=== PATIENT | female | born 1960 | race Caucasian/White ===

== ENCOUNTER → 2017-05-30 | Outpatient (CLI) | payer BC ==
[~2017-05-30] MED LIST: IOPAMIDOL 370 MG/ML 200 ML INFUS..BTL INJ ONE; SODIUM CHLORIDE 0.9% 50ML 50 ML ONE
--- NOTE | 2017-05-30 15:48 | Diagnostic Imaging Report ---
PROCEDURE: CT scan of the chest WITH intravenous contrast, using PE protocol. TECHNIQUE: The chest was scanned utilizing a multidetector helical scanner from the lung apex through the level of the adrenal glands after the IV administration of 58 cc of Isovue 370, with special concentration in the pulmonary arteries. Coronal and sagittal multiplanar reformations were obtained. COMPARISON: None. INDICATIONS: CHEST PAIN, SHORTNESS OF BREATH FINDINGS: Lines/tubes: None. Lungs and Airways: No filling defects in the main, right or left pulmonary arteries to the segmental levels to suggest pulmonary embolism. No pulmonary nodules, masses, or consolidation. Linear opacity in the posterior right upper lobe against the major fissure (series 3, image 42 and coronal image 66), likely represents focal scarring. Airways are clear, without endobronchial lesions. Pleura: The pleural spaces are clear. Heart and mediastinum: 2.3 x 1.7 x 1.8 cm partially peripherally calcified nodule in the left thyroid lobe (series 2 image 12). Heart size is normal. No pericardial effusion. Extensive atherosclerotic calcification of the coronary arteries, particularly the LAD. Lymph nodes: No mediastina, hilar, or axillary adenopathy. Abdomen: Limited contrast-enhanced views of the upper abdomen show no abnormality within the visualized liver, spleen, pancreas. Right adrenal gland is unremarkable. 0.9 cm fat-containing lesion in the left adrenal gland, consistent with a myelolipoma (series 2, image 104). Bones: No aggressive lytic lesion. Soft tissues are grossly unremarkable. IMPRESSION: 1. no CT evidence of pulmonary embolism. 2. Focal scarring in the right upper lobe against the major fissure. Otherwise, the lungs are grossly clear. 3. 2.3 cm peripherally calcified thyroid nodule. Dedicated thyroid ultrasound would be helpful for further evaluation. 4. 0.9 cm left adrenal myelolipoma. Raymond Lind M.D. Dictated by: Raymond Lind M.D. on 05/30/2017 at 15:57 Electronically approved by: Raymond Lind M.D. on 05/30/2017 at 15:57
== END ==
LOC: CT 12:44
PROVIDERS: ATTEND Internal Medicine Interventional Cardiology
DX: R06.02 Shortness of breath (principal); R00.0 Tachycardia, unspecified
CPT/HCPCS: 71260; Q9967

== ENCOUNTER → 2018-09-30 | Day surgery (SDC) | payer BC ==
[2018-09-24 11:30] LABS: BASOPHILS # (AUTO) 0.1 (0.0-0.1); BASOPHILS % 0.7 % (0.0-1.0); EOSINOPHILS # (AUTO) 0.6 (0.0-0.4); EOSINOPHILS % 7.4 % (0.0-6.0); HEMOGLOBIN 11.5 g/dL (12.0-16.0); LYMPHOCYTES # (AUTO) 2.1 (1.0-3.2); LYMPHOCYTES % 27.4 % (18.0-39.1); MEAN CORPUSCULAR HGB CONC 31.1 g/dL (31-35); MEAN CORPUSCULAR VOLUME 83.7 fL (81-99); MONOCYTES # (AUTO) 0.5 (0.2-0.8); MONOCYTES % 6.7 % (4.4-11.3); NEUTROPHILS # (AUTO) 4.3 (2.1-6.9); NEUTROPHILS % 57.5 % (38.7-80.0); PLATELET COUNT 201 x10e3/uL (140-360); RED BLOOD COUNT 4.42 x10e6/uL (3.6-5.1); RED CELL DISTRIBUTION WIDTH 12.5 % (11.7-14.4)
[2018-09-24 11:53] LABS: ALBUMIN 3.7 g/dL (3.5-5.0); ALBUMIN/GLOBULIN RATIO 1.1 (0.8-2.0); ANION GAP 14.1 mmol/L (8-16); CALCIUM 9.8 mg/dL (8.4-10.2); CREATININE, SERUM 1.05 mg/dL (0.57-1.11); POTASSIUM 4.1 mmol/L (3.5-5.1)
[2018-09-30] VITALS (16 sets, daily range): BP systolic 125–150; BP diastolic 53–104
[~2018-09-30] VITALS: Ht 165.1 cm; Wt 88.5 kg
[~2018-09-30] MED LIST changes: +ASPIR 8181 MG PO; +ASPIRIN 325 MG TAB ONE; +CORLANOR PO; +CRESTOR10 MG PO; +EFFIENT10 MG PO; +EPTIFIBATIDE 10 ML ONE; +FENTANYL CITRATE/PF 100MCG/2 ML INJ ONE; +FERROUS SULFAT325 MG PO; +HEPARIN SOD/SOD CHLORIDE 2,000 ML ONE; +HYDROCODONE/APAP 5MG-325MG TAB ONE; +LEVOTHYROXINE112 MCG PO; +LIDOCAINE HCL 2% LOCAL 20 ML VIAL ONE; +METFORMIN HCL500 MG PO; +MIDAZOLAM HCL 2 MG/2 ML VIAL ONE; +NAPROXEN250 MG PO; +NOVOLOG MI100 UNIT/1 SC; +SERTRALINE HCL100 MG PO; +SODIUM CHLORIDE 0.9% 1000ML 1,000 ML ONE; -SODIUM CHLORIDE 0.9% 50ML 50 ML ONE; +TICAGRELOR 90 MG TABLET ONE; +VERAPAMIL HCL 2.5 MG/ML 2 ML VIAL ONE
--- OUTSIDE RECORDS SUMMARY | 2018-09-30 10:11 | XMS REPORT | Clinical Summary ---
Author Author [facility] Organization [place] [facility] Address Unknown Phone Unavailable Care Team Providers Care Nuclear Design Engineer Name Role Phone Valeriy Tatum MD PCP Allergies No Known Allergies Medications End Date Status Medication Sig Dispensed Refills Start Date Active aspirin (ECOTRIN) 81 MG 0 enteric coated tablet 9 Active ferrous sulfate 325 (65 Take 1 tablet 6 FE) MG tablet by mouth 9 daily. Active CORLANOR 5 mg tablet Take 5 mg by 1 tablet mouth 2 (two) 9 times a day with meals. Active levothyroxine (SYNTHROID, 0 LEVOXYL) 100 mcg tablet 9 Active metFORMIN (GLUCOPHAGE) 0 1,000 mg tablet 9 09/18/2018 gabapentin (NEURONTIN) Take 1 90 capsule 0 300 mg capsule capsule (300 9 mg total) by mouth 3 (three) times a day for 30 days. Active Problems No known active problems Encounters Care Team Description Date Type Specialty Artur Farrar MD HNP (herniated nucleus pulposus), lumbar (Primary Dx); Lumbar radiculopathy 09/18/2018 Office Visit Neurosurgery Angela Lew RN 09/03/2018 Telephone Radiology Artur Farrar MD HNP (herniated nucleus pulposus), lumbar; Lumbar radiculopathy; Bilateral leg pain 09/02/2018 Hospital Radiology Encounter Peg Sorensen RN 09/01/2018 Telephone Radiology Artur Farrar MD 08/19/2018 Hospital Radiology Encounter Artur Farrar MD Onyegbula Sallu, Ogechi Joyce, NP HNP (herniated nucleus pulposus), lumbar (Primary Dx); Lumbar radiculopathy; Bilateral leg pain; Bowel dysfunction 08/19/2018 Office Visit Neurosurgery after 09/29/2017 Family History Medical History Relation Name Comments Cancer Father Lung failure Mother Relation Name Status Comments Father Mother Social History Date Tobacco Use Types Packs/Day Years Used Never Smoker Smokeless Tobacco: Never Used Alcohol Use Drinks/Week oz/Week Comments Yes Alcohol Habits Answer Date Recorded How often do you have a drink containing alcohol? 2-4 times a month 08/19/2018 How many drinks containing alcohol do you have on Not asked a typical day when you are drinking? How often do you have six or more drinks on one Not asked occasion? Sex Assigned at Date Recorded Not on file Industry Job Start Date Occupation Not on file Not on file Not on file Travel End Travel History Travel Start No recent travel history available. Last Filed Vital Signs Time Taken Vital Sign Reading 09/18/2018 9:49 AM CDT Blood Pressure 123/67 09/18/2018 9:49 AM CDT Pulse 93 09/02/2018 12:09 PM CDT Temperature 36.1 C (97 F) 09/02/2018 12:09 PM CDT Respiratory Rate 17 09/02/2018 1:00 PM CDT Oxygen Saturation 97% - Inhaled Oxygen - Concentration 09/02/2018 10:34 AM CDT Weight 88.5 kg (195 lb) 09/02/2018 10:34 AM CDT Height 165.1 cm (5' 5") 09/02/2018 10:34 AM CDT Body Mass Index 32.45 Plan of Treatment Health Maintenance Due Date Last Done Comments BREAST CANCER SCREENING 2008 COLONOSCOPY SCREENING 2008 SHINGLES VACCINES (#1) 2008 INFLUENZA VACCINE 11/19/2018 Procedures Comments Procedure Name Priority Date/Time Associated Diagnosis IR EPIDURAL INJECTION Routine 09/02/2018 HNP (herniated nucleus LUMBAR 12:00 PM CDT pulposus), lumbar Lumbar radiculopathy Bilateral leg pain MRI SPINE EXTERNAL STUDY Routine 08/14/2018 5:31 PM CDT after 09/29/2017 Results * IR Epidural Injection Lumbar (09/02/2018 12:00 PM CDT) Specimen Narrative Performed At EXAMINATION:IR EPIDURAL INJECTION LUMBAR [facility] CLINICAL HISTORY:M51.26 Other intervertebral disc displacementlumbar region, M54.16 Radiculopathylumbar region, HNP lumbar causing lumbar spinal stenosis COMPARISON:MRI lumbar spine dated August 14, 2018 FINDINGS: Review the patient's outside hospital MRI shows multifactorial significant canal lateral recess stenosis at L4-5. The patient has symptoms related to this stenosis with occasional bilateral lower extremity weakness and radiculopathies from the stenosis. A L4-L5 KIRSTEN was ordered and performed. After informed consent, and timeout was performed, the patient's lower back was prepped and draped in the usual sterile fashion. 1% lidocaine was used for local anesthesia. Under direct fluoroscopic guidance with imaging in both the AP and lateral planes, access to the posterior epidural space was made using a 20-gauge Touhy needle. Loss of resistance technique was used to identify the epidural space. This was further confirmed with injection of a small amount of contrast outlining the epidural space at L4-L5. No intervascular enhancement or contrast extravasation was noted. No intrathecal contrast extravasation was noted. The patient did not have any symptoms of discomfort with contrast injection. This was followed by injection of steroids mixed with Marcaine for epidural steroid injection. A total of 9 mg of Celestone mixed with 1 cc is 0.75%Marcaine was injected. There are no complications. Total fluoroscopy time was 0.1 minutes.Total radiation dose is 101.3 mGy=Ka,r IMPRESSION: Successful fluoroscopic guided lumbar epidural steroid injection at L4-5 as detailed above. There was complete pain relief 30 minutes post injection. Efficacy of the steroids will be determined over the next few weeks. Due to the severe stenosis at L4-5, the patient was counseled on the importance of diet, exercise and weight loss. If the steroids do not work, the patient was counseled on the need for possible future decompressive surgery. [id number] Procedure Note Hm Interface, Radiology Results Incoming - 09/02/2018 6:27 PM CDT EXAMINATION: IR EPIDURAL INJECTION LUMBAR CLINICAL HISTORY: M51.26 Other intervertebral disc displacement lumbar region, M54.16 Radiculopathy lumbar region, HNP lumbar causing lumbar spinal stenosis COMPARISON: MRI lumbar spine dated August 14, 2018 FINDINGS: Review the patient's outside hospital MRI shows multifactorial significant canal lateral recess stenosis at L4-5. The patient has symptoms related to this stenosis with occasional bilateral lower extremity weakness and radiculopathies from the stenosis. A L4-L5 KIRSTEN was ordered and performed. After informed consent, and timeout was performed, the patient's lower back was prepped and draped in the usual sterile fashion. 1% lidocaine was used for local anesthesia. Under direct fluoroscopic guidance with imaging in both the AP and lateral planes, access to the posterior epidural space was made using a 20-gauge Touhy needle. Loss of resistance technique was used to identify the epidural space. This was further confirmed with injection of a small amount of contrast outlining the epidural space at L4-L5. No intervascular enhancement or contrast extravasation was noted. No intrathecal contrast extravasation was noted. The patient did not have any symptoms of discomfort with contrast injection. This was followed by injection of steroids mixed with Marcaine for epidural steroid injection. A total of 9 mg of Celestone mixed with 1 cc is 0.75% Marcaine was injected. There are no complications. Total fluoroscopy time was 0.1 minutes. Total radiation dose is 101.3 mGy =Ka,r IMPRESSION: Successful fluoroscopic guided lumbar epidural steroid injection at L4-5 as detailed above. There was complete pain relief 30 minutes post injection. Efficacy of the steroids will be determined over the next few weeks. Due to the severe stenosis at L4-5, the patient was counseled on the importance of diet, exercise and weight loss. If the steroids do not work, the patient was counseled on the need for possible future decompressive surgery. [id number] Performing Organization Address [facility] Phone Number [employer] [address] [place] [address] * MRI Spine External Study (08/14/2018 5:31 PM CDT) Specimen Narrative Performed At This exam was not acquired at a [facility] facility and has not been RAD[facility]ANNER interpreted by a [facility] Provider.The exam was imported into our imaging system for comparisons purposes. Performing Organization Address City/State/Zipcode Phone Number [employer] [address] [place] [address] after 09/29/2017 Insurance Type Payer Benefit Subscriber ID Effective Phone Address Plan / Dates Group PPO BCBS DIEUDONNEEM xxxxxxxxxxxxxxx [id number] BLUE CROSS resent Advance Directives Patient has advance care planning documents on file. For more information, toni e contact: Paras Archer [address] [place] [address]
--- OUTSIDE RECORDS SUMMARY | 2018-09-30 10:11 | XMS REPORT ---
[facility] Address Unknown Phone Unavailable Care Team Providers Care Plate Worker Helper Name Role Phone MADY MART Unavailable Unavailable Problems This patient has no known problems. Allergies, Adverse Reactions, Alerts This patient has no known allergies or adverse reactions. Medications This patient has no known medications. Results Test Description Test Time Test Comments Text Results Atomic Results Result Comments CT CHEST W [place] [address] Patient Name: VIDA JAVIER MR #: [id number] : 1960 Age/Sex: 56/F Req #: [id number] Adm Physician: Ordered by: MADY MART MD Report #: [id number] Location: CT Room/Bed: Procedure: [id number] CT/CT CHEST W Exam Date: Exam Time: REPORT STATUS: Signed PROCEDURE: CT scan of the chest WITH intravenous contrast, using PE protocol. TECHNIQUE: The chest was scanned utilizing a multidetector helical scanner from the lung apex through the level of the adrenal glands after the IV administration of 58 cc of Isovue 370, with special concentration in the pulmonary arteries. Coronal and sagittal multiplanar reformations were obtained. COMPARISON: None. INDICATIONS: CHEST PAIN, SHORTNESS OF BREATH FINDINGS: Lines/tubes: None. Lungs and Airways: No filling defects in the main, right or left pulmonary arteries to the segmental levels to suggest pulmonary embolism. No pulmonary nodules, masses, or consolidation. Linear opacity in the posterior right upper lobe against the major fissure (series 3, image 42 and coronal image 66), likely represents focal scarring. Airways are clear, without endobronchial lesions. Pleura: The pleural spaces are clear. Heart and mediastinum: 2.3 x 1.7 x 1.8 cm partially peripherally calcified nodule in t he left thyroid lobe (series 2 image 12). Heart size is normal. No pericardial effusion. Extensive atherosclerotic calcification of the coronary arteries, particularly the LAD. Lymph nodes: No mediastina, hilar, or axillary adenopathy. Abdomen: Limited contrast-enhanced views of the upper abdomen show no abnormality within the visualized liver, spleen, pancreas. Right adrenal gland is unremarkable. 0.9 cm fat-containing lesion in the left adrenal gland, consistent with a myelolipoma (series 2, image 104). Bones: No aggressive lytic lesion. Soft tissues are grossly unremarkable. IMPRESSION: 1. no CT evidence of pulmonary embolism. 2. Focal scarring in the right upper lobe against the major fissure. Otherwise, the lungs are grossly clear. 3. 2.3 cm peripherally calcified thyroid nodule. Dedicated thyroid ultrasound would be helpful for further evaluation. 4. 0.9 cm left adrenal myelolipoma. Desean Yusuf M.D. Dictated by: Desean Yusuf M.D. on 05/30/2017 at 15:57 Electronically approved by: Desean Yusuf M.D. on 05/30/2017 at 15:57 Dictated By: DESEAN YUSUF MD 2017 Transcribed By: PRASANNA on 05/30/17 [id number] COPY TO: MADY MART MD GUIDE FNA BIOPSY NECK/THYROID/HEAD CLINICAL INDICATION: E 04.1MODALITY: [email or web address] PreirusTECHNIQUE: Informed consent is obtained. Benefits, risks and alternatives are discussed in detail with the patient. The neck is prepped and draped in routine fashion. 1% buffered lidocaine is used for local analgesia. Using ultrasound guidance, multiple passes are made into the suspicious area utilizing a 25 gauge needle. Slides are prepared and submitted for cytological analysis.Estimated blood loss: 0 ml. FINDINGS:Needle is depicted within the suspected lesion.IMPRESSION:1. Ultrasound - guided biopsy 2.6 x 2.3 cm left thyroid nodule. 2. Pathologic diagnosis: Negative for malignancy; histologic prediction is adenomatous nodule.This represents a concordant result.
--- NOTE | 2018-09-30 14:00 | NUR ---
Report received from Rocco Tabor RN, review of procedural findings and medications given. Patient sitting up on stretcher w/ family at bedside. maintains airway and room air saturations of 98-99%. No gross issues of pressure, pain, pallor or dysrhythmia. IV site patent with NS 0.9% at KVO to left hand. patient hemodynamically stable with hemostasis right radial TR band w/ 11ml air with +neurovascular function. CDI w/o s/s of bleeding. patient on bedside monitor, bed low and locked, siderails up x2. no gross distress. faint discoloration proximal to TR band. continuing to observe[place] [facility] [place] Circumflex PCI x2 right radial approach Sheath puller: lizeth RTr TR band 11ml Meds Given Intra-Procedure Sedatives Versed - 4 mg Fentanyl - 100 mcg Anticoagulants Heparin - 9000 Units Integrilin - 7.9ml bolus x1 Fluids Input - 400ml Output - dtv Contrast Isovue 370 - 120ml Other Meds Brilinta 180mg PO Aspirin 325mg PO
--- NOTE | 2018-09-30 14:30 | NUR ---
Pt remains alert and oriented, VS wnl. Pt w/ c/o of mild headache 05/31. Sustenance provided. Observed enlarged discoloration proximal to TR band with slight "bulging". Immediate moderate pressure applied and Jarred to room to ensure position unchanged. 2ML additional to TR band, and moderate pressure for 5 minutes applied. Further observation pt w/ c/o of ache to right upper arm. No gross deformities, swelling, or discoloration, right elbow joint unimpeded. Reinforced complete rest of right arm. monitoring ongoing - cgf
--- NOTE | 2018-09-30 14:55 | NUR ---
gross swelling proximal to TR band approximately 1.5 cm. Immediate pressure applied and technologists called to reevaluate position. Decided to add 2nd TR band adjunct to 10 minutes of direct pressure. VS wnl, maintains + neurovascular function.-cgf
--- NOTE | 2018-09-30 15:10 | NUR ---
bedside report provided to Amara Perdomo RN. Alert oriented and appropriate, PERRLA, respirations even and unlabored to room air. Pulses x4 extremities equal and strong. Tr band proximal w/ 10ml/hr, distal TR band 13ml/hr. Cap fill brisk < 3 sec. Skin warm and dry integrity appears intact. IV presents healthy w/o s/s of infiltration or complaint. Family not present. Pt verbalizes understanding of POC. above prior events reviewed. Headache beginning to intensify 09/28. next RN following up -cgf
--- NOTE | 2018-09-30 15:15 | NUR ---
1515 Received pt in Rm #[id number] Identiferx2 Report form Omar CLEMONS. [facility] Rt Tr band approach TR band x [address] due to hematoma. Pt back to baseline orientation Co Lopez temporal 09/[address] Laguna for Lopez orders. Pt has Stent to Circumflex 2 Monitor NSR.Denies c/o Cp or SOB NO gross issues pain, pallor, pressure or dysrhythmia. Md called back Narco 325mg/5mg po x1 for pain of 09/28.Bilateral ppx4 PT/Dp. Left iv site w/o a 75cc/hr no s/s infiltration. Family at bedside discussed POC aware of importance f/o 2wks.Copies dc papers with family. 1630pm 2cc to initial TR band no oozing noted Intact neuro vascular function noted. ds/rn
--- NOTE | 2018-09-30 18:00 | NUR ---
1800p TR band removal completed with TR band x2 removed w/o incident. Neuro vascular function intact. No gross issues pain pallor pressure or dysrhythmia. Instructed daughter on home care, Has copies of POC and back to work release. Iv removed and site w/o s/s infiltration back to baseline orientation. Rt tr band site with Coban dressing and wrist splint. NO s/s hematoma does have slight blueness to wrist area. Denies c/o CP,SOB or tenderness to wrist. Knows importance of f/o care 2wks. To car per w/c daughter is lifter driver. With Rn escort. ds/rn
--- NOTE | 2018-09-30 20:37 | Operative Report ---
DATE OF PROCEDURE: 09/30/2018 SURGEON: Barrie Laguna MD INDICATIONS: Coronary artery disease, abnormal stress test. PROCEDURES PERFORMED: 1. Left heart catheterization, selective coronary angiography, left ventriculography. 2. Percutaneous transluminal coronary angioplasty and stent placement to the mid and proximal circumflex artery. 3. Deployment of right wrist TR band. COMPLICATIONS: None. RECOMMENDATIONS: Medical therapy. DESCRIPTION OF PROCEDURE: Access obtained in the right radial artery using ultrasound guidance. A 5-Botswanan sheath was placed. Diagnostic coronary angiogram revealed 50% distal left main stenosis, heavily calcified left anterior descending artery 50% stenosis, circumflex 80% and 90% stenosis proximal and midportion, circumflex stent widely patent prior to the stent, 50% stenosis. LV ejection fraction 70%. LV end-diastolic pressure of 10. No gradient across aortic valve on pullback. A decision was made to intervene on the circumflex artery. The patient received heparin and Integrilin as well as oral Brilinta and aspirin for anticoagulation. The left main was cannulated using the ERAD 5-Botswanan guiding catheter. A short wire was advanced across the lesion for support. Predilatation with a 2-0 balloon, following which 2 overlapping 2.25 x 30 mm Arnaud and 2.75 x 12 mm Arnaud stents were deployed at 14 atmospheres. Excellent end result less than 10% residual stenosis, CHERY-3 flow. No complications. Wire Guide sheath was removed. TR band applied. The patient discharged home same day. Barrie Laguna MD [facility] /[id number]
== END | disposition home or self-care (01) ==
LOC: CATH LAB 10:09
PROVIDERS: ATTEND Internal Medicine Interventional Cardiology
DX: I25.118 Atherosclerotic heart disease of native coronary artery with other forms of angina pectoris (principal); I25.2 Old myocardial infarction; I50.22 Chronic systolic (congestive) heart failure; E78.00 Pure hypercholesterolemia, unspecified; G47.33 Obstructive sleep apnea (adult) (pediatric); E11.9 Type 2 diabetes mellitus without complications; Z01.812 Encounter for preprocedural laboratory examination; Z79.82 Long term (current) use of aspirin; Z79.4 Long term (current) use of insulin; Z68.36 Body mass index [BMI] 36.0-36.9, adult
CPT/HCPCS: 36415; 80053; 85025; 92928; 93458; C1725; C1769; C1874 ×2; C1887; J1327; J2001; J2250; J7030; Q9967

== ENCOUNTER → 2018-10-15 | Outpatient (CLI) | payer BC ==
[~2018-10-15] MED LIST changes: -ASPIRIN 325 MG TAB ONE; -EPTIFIBATIDE 10 ML ONE; -FENTANYL CITRATE/PF 100MCG/2 ML INJ ONE; -HEPARIN SOD/SOD CHLORIDE 2,000 ML ONE; -HYDROCODONE/APAP 5MG-325MG TAB ONE; -IOPAMIDOL 370 MG/ML 200 ML INFUS..BTL INJ ONE; -LIDOCAINE HCL 2% LOCAL 20 ML VIAL ONE; -MIDAZOLAM HCL 2 MG/2 ML VIAL ONE; -SODIUM CHLORIDE 0.9% 1000ML 1,000 ML ONE; -TICAGRELOR 90 MG TABLET ONE; -VERAPAMIL HCL 2.5 MG/ML 2 ML VIAL ONE
--- NOTE | 2018-10-15 12:41 | Diagnostic Imaging Report ---
History: TIA Comparison studies: None Technique: Sagittal T2; axial DWI, FLAIR, MPGR, T1, Coronal FLAIR. Intravenous contrast: None Findings: Scalp: Normal in signal . No masses . Bone marrow: Normal in signal intensity. Extra-axial: No masses, no fluid collections. Brain sulci: Appropriate for age. Ventricles: Normal in size . No hydrocephalus . Parenchyma: No abnormal signal intensities. No masses, hemorrhage, acute or chronic vascular insults. Suprasellar region: No abnormalities. Craniocervical junction: No abnormalities. Patent foramen magnum. No Chiari one malformation. Vessels: Normal flow-voids in the arteries and sinuses. IMPRESSION: 1. No abnormalities Signed by: DR Pako Villeda M.D. on 10/15/2018 12:38 PM
== END ==
LOC: MRI 09:21
PROVIDERS: ATTEND Internal Medicine Interventional Cardiology
DX: G45.9 Transient cerebral ischemic attack, unspecified (principal)
CPT/HCPCS: 70551

== ENCOUNTER 2019-08-02 16:44 | Emergency (ER) | payer BC ==
[~2019-08-02] VITALS: Ht 165.1 cm; Wt 88.5 kg
[2019-08-02] MEDS ORDERED: SODIUM CHLORIDE 0.9% 1000ML 1,000 ML IV STA (17:53)
[2019-08-02] MEDS ORDERED: DICYCLOMINE HCL 20 MG/2 ML VIAL IM ONE ×3 (18:00→18:34)
[2019-08-02] MEDS ORDERED: SODIUM CHLORIDE FLUSH 10 ML SYR INJ PRN (18:00)
[2019-08-02] MEDS ORDERED: SODIUM CHLORIDE 0.9% 1000ML 1,000 ML ONE (18:21)
[2019-08-02] MEDS ORDERED: SODIUM CHLORIDE 0.9% 50ML 50 ML ONE (18:30)
[2019-08-02] MEDS ORDERED: IOPAMIDOL 370 MG/ML 200 ML INFUS..BTL INJ ONE (18:30)
--- NOTE | 2019-08-02 18:45 | NUR ---
report given to JOSE MARTIN CLEMONS
--- NOTE | 2019-08-02 19:01 | Diagnostic Imaging Report ---
EXAM: CT Abdomen and Pelvis WITH contrast INDICATION: Abdominal pain. Constipation. COMPARISON: None. TECHNIQUE: Abdomen and pelvis were scanned utilizing a multidetector helical scanner from the lung base to the pubic symphysis after administration of IV contrast. Coronal and sagittal reformations were obtained. Routine protocol was performed. Scan was performed when during portal venous phase. IV CONTRAST: 100 mL of Isovue 300 ORAL CONTRAST: None COMPLICATIONS: None RADIATION DOSE: Total DLP: ... mGy*cm Estimated effective dose: (DLP x 0.015 x size factor) mSv CTDIvol has been reviewed. It is below the limits set by the Radiation Protocol Committee (RPC). Dose modulation, iterative reconstruction, and/or weight based adjustment of the mA/kV was utilized to reduce the radiation dose to as low as reasonably achievable. FINDINGS: LINES and TUBES: None. LOWER THORAX: Unremarkable HEPATOBILIARY: No focal hepatic lesions. No biliary ductal dilation. GALLBLADDER: No radio-opaque stones or sludge. No wall thickening. SPLEEN: No splenomegaly. PANCREAS: No focal masses or ductal dilatation. ADRENALS: No adrenal nodules KIDNEYS/URETERS: Kidneys enhance symmetrically. No hydronephrosis. No cystic or solid mass lesions. No stones. GI TRACT: No abnormal distention, wall thickening, or evidence of bowel obstruction. Small fat and bowel-containing periumbilical hernia. No bowel obstruction or strangulation. Moderate amount of retained feces in the colon could be due to constipation. PELVIC ORGANS/BLADDER: Unremarkable. LYMPH NODES: No lymphadenopathy. VESSELS: Unremarkable. PERITONEUM / RETROPERITONEUM: No free air or fluid. BONES: Unremarkable. SOFT TISSUES: Postsurgical change along the anterior right mid/lower abdominal wall. IMPRESSION: 1. Small fat and bowel-containing periumbilical hernia. No bowel obstruction or strangulation. Moderate amount of retained feces in the colon could be due to constipation. Signed by: Dr. Harlan Schmidt M.D. on 08/02/2019 6:58 PM
[2019-08-02 19:53] VITALS: BP 114/63
[2019-08-02] MEDS ORDERED: ONDANSETRON ODT8 MG PO (20:02)
[2019-08-02] MEDS ORDERED: LEVSIN-SL0.125 MG PO (20:02)
[2019-08-02] MEDS ORDERED: BACTRIM DS TAB1 EACH PO (20:05)
[2019-08-05] MEDS ORDERED: METOPROLOL SUCC25 MG PEG (12:34)
[2019-08-05] MEDS ORDERED: NOVOLOG100 UNITS1 SQ ×2 (12:34)
[2019-08-05] MEDS ORDERED: OZEMPIC0.25 MG/0. INJ (12:34)
[2019-08-05] MEDS ORDERED: GLIMEPIRIDE2 MG PO (12:34)
[2019-08-05] MEDS ORDERED: GABAPENTIN100 MG PO (12:34)
== END 2019-08-02 20:20 | disposition home or self-care (01) ==
LOC: FSED 16:44
DX: K59.00 Constipation, unspecified (principal); N39.0 Urinary tract infection, site not specified
CPT/HCPCS: 74177; 80053; 80076; 81003; 85025; 85610; 96374; 99284; J0500; J7030; Q9967

== ENCOUNTER → 2019-08-06 | Day surgery (SDC) | payer BC ==
[~2019-08-06] MED LIST changes: +BACTRIM DS TAB1 EACH PO; +FENTANYL CITRATE/PF 100MCG/2 ML INJ ONE; +GABAPENTIN100 MG PO; +GLIMEPIRIDE2 MG PO; +GLUCAGON FOR INJ 1 MG VIAL ONE; +HYOSCYAMINE 0.125 MG TAB ONE; +INSULIN REGULAR, HUMAN 100 UNIT/1 ML 3ML VIAL ONE; +LEVSIN-SL0.125 MG PO; +LIDOCAINE HCL 2% LOCAL INJ 5 ML SDV VIAL INJ ONE; +METOPROLOL SUCC25 MG PEG; +MIDAZOLAM HCL 2 MG/2 ML VIAL ONE; +NOVOLOG100 UNITS1 SQ; +ONDANSETRON ODT8 MG PO; +OZEMPIC0.25 MG/0. INJ; +PROPOFOL IV EMULSION 10 MG/ML 50 ML VIAL ONE
[2019-08-06 07:15] LABS: BASOPHILS # (AUTO) 0.1 (0.0-0.1); BASOPHILS % 0.5 % (0.0-1.0); EOSINOPHILS # (AUTO) 0.5 (0.0-0.4); EOSINOPHILS % 4.5 % (0.0-6.0); HEMATOCRIT 41.3 % (34.2-44.1); HEMOGLOBIN 13.2 g/dL (12.0-16.0); LYMPHOCYTES # (AUTO) 2.7 (1.0-3.2); MEAN CORPUSCULAR HEMOGLOBIN 26.2 pg (28-32); MEAN CORPUSCULAR VOLUME 82.1 fL (81-99); MONOCYTES # (AUTO) 0.7 (0.2-0.8); MONOCYTES % 6.5 % (4.4-11.3); NEUTROPHILS # (AUTO) 6.4 (2.1-6.9); NEUTROPHILS % 62.2 % (38.7-80.0); PLATELET COUNT 227 x10e3/uL (140-360); RED BLOOD COUNT 5.03 x10e6/uL (3.6-5.1); RED CELL DISTRIBUTION WIDTH 13.2 % (11.7-14.4)
[2019-08-06 09:30] VITALS: BP 133/64
--- NOTE | 2019-08-06 10:56 | Operative Report ---
DATE OF PROCEDURE: 08/06/2019 SURGEON: Adam Jean Baptiste MD PROCEDURE: EGD with biopsies and colonoscopy with polypectomy. INDICATIONS FOR EGD: Acid reflux, history of melena. INDICATIONS FOR COLONOSCOPY: History of bright red blood per rectum, lower abdominal pain, change in bowel habits. MEDICATIONS: The patient was done under MAC, please see anesthesiologist's note. PROCEDURE IN DETAIL: With the patient in left lateral decubitus position, flexible fiberoptic Olympus gastroscope was introduced into the esophagus under direct visualization without any difficulty. There was some patchy erythema noted in distal esophagus. Minute nodule was noted at the GE junction that was biopsied. The scope was then advanced with ease into the stomach. Mucosa overlying the antrum and the body revealed some patchy erythema and low-grade to moderate edema, and biopsies were obtained, sent to stain for H pylori. The pylorus was of normal contour and shape. It was intubated with ease and the scope was advanced all the way to the second portion of the duodenum. Biopsies were obtained from the proximal second portion and the duodenal bulb to rule out sprue. The scope was then withdrawn back into the stomach and retroflexed. Mucosa overlying the fundus and cardia appeared to be within normal limits. The scope was then straightened out, it was subsequently withdrawn. The patient tolerated the procedure well. IMPRESSION: 1. Distal esophagitis, mild. 2. Minute nodule, GE junction, biopsied. 3. Gastritis, biopsied, biopsies sent to stain for Helicobacter pylori. 4. Rule out sprue. PLAN: Follow up histology. Initiate Protonix 40 mg one p.o. q.a.m. a.c. PROCEDURE IN DETAIL: The patient was then turned around after adequate lubrication of the anal canal, a flexible fiberoptic Olympus colonoscope was inserted into the rectum with ease and advanced all the way to the cecum. Mucosa overlying the cecum appeared to be within normal limits. Approximately 8 mm polyp was removed per snare electrocautery from the distal ascending colon. Two polyps were removed per snare electrocautery from the distal transverse colon and one polyp also was removed per hot snare polypectomy from the descending colon. The sigmoid and the rectum appeared to be within normal limits. The scope was then retroflexed into the distal rectum. Small internal hemorrhoids were noted, none of which was actively bleeding. The scope was then straightened out, it was subsequently withdrawn. The patient tolerated the procedure well. IMPRESSION: 1. Ascending colon polyp, snared. 2. Transverse colon polyps x2, removed per snare electrocautery. 3. Descending colon polyp removed per snare electrocautery. 4. Internal hemorrhoids, none actively bleeding. PLAN: Follow up histology. Initiate high-fiber, low-fat diet. Initiate VSL#3 one p.o. daily. The patient might benefit from a followup colonoscopy in 3 years. Adam Jean Baptiste MD [facility] [place] /[id number] cc: Valeriy Laguna MD
== END | disposition home or self-care (01) ==
LOC: OR 06:03
PROVIDERS: ATTEND Internal Medicine Gastroenterology
DX: K62.5 Hemorrhage of anus and rectum (principal); D12.3 Benign neoplasm of transverse colon; D12.4 Benign neoplasm of descending colon; K29.50 Unspecified chronic gastritis without bleeding; K20.9 Esophagitis, unspecified; K59.09 Other constipation; K22.8 Other specified diseases of esophagus; K64.8 Other hemorrhoids; E11.9 Type 2 diabetes mellitus without complications; E03.9 Hypothyroidism, unspecified; J45.909 Unspecified asthma, uncomplicated; I25.2 Old myocardial infarction; I10 Essential (primary) hypertension; Z79.4 Long term (current) use of insulin; Z79.84 Long term (current) use of oral hypoglycemic drugs
CPT/HCPCS: 36415; 43239; 45385; 82948; 85025; 93005; J2250; J3010; 45378; J1610; J1817; J2001

== ENCOUNTER → 2021-08-08 | Day surgery (SDC) | payer BC ==
[2021-08-06 12:24] LABS: BASOPHILS % 0.5 % (0.0-1.0); EOSINOPHILS # (AUTO) 0.2 (0.0-0.4); EOSINOPHILS % 3.2 % (0.0-6.0); HEMATOCRIT 36.6 % (34.2-44.1); HEMOGLOBIN 10.7 g/dL (12.0-16.0); LYMPHOCYTES # (AUTO) 1.5 (1.0-3.2); MEAN CORPUSCULAR HGB CONC 29.2 g/dL (31-35); MEAN CORPUSCULAR VOLUME 78.5 fL (81-99); MONOCYTES # (AUTO) 0.4 (0.2-0.8); NEUTROPHILS # (AUTO) 4.5 (2.1-6.9); NEUTROPHILS % 68.1 % (38.7-80.0); PLATELET COUNT 235 x10e3/uL (140-360); RED BLOOD COUNT 4.66 x10e6/uL (3.6-5.1)
[~2021-08-08] MED LIST changes: +CORLANOR5 MG; +EPHEDRINE SULFATE INJ 50 MG/ML VIAL ONE; +FOLIC ACID0.4 MG PO; -GLUCAGON FOR INJ 1 MG VIAL ONE; -HYOSCYAMINE 0.125 MG TAB ONE; -INSULIN REGULAR, HUMAN 100 UNIT/1 ML 3ML VIAL ONE; +JARDIANCE25 MG; +NOVALIN; +OZEMPIC0.25 MG/0. SC; +PIOGLITAZONE HC45 MG PO; +PROPOFOL IV EMULSION 10 MG/ML 20 ML VIAL ONE; -PROPOFOL IV EMULSION 10 MG/ML 50 ML VIAL ONE; +VITAMIN D250 MCG
[2021-08-08 13:15] VITALS: BP 135/63
== END | disposition home or self-care (01) ==
LOC: OR 08:04
PROVIDERS: ATTEND Internal Medicine Gastroenterology
DX: D64.89 Other specified anemias (principal); D12.0 Benign neoplasm of cecum; D12.3 Benign neoplasm of transverse colon; Q27.39 Arteriovenous malformation, other site; K29.50 Unspecified chronic gastritis without bleeding; K20.90 Esophagitis, unspecified without bleeding; K59.09 Other constipation; K57.30 Diverticulosis of large intestine without perforation or abscess without bleeding; K64.8 Other hemorrhoids; Z71.3 Dietary counseling and surveillance; I25.10 Atherosclerotic heart disease of native coronary artery without angina pectoris; I25.2 Old myocardial infarction; E11.9 Type 2 diabetes mellitus without complications; I10 Essential (primary) hypertension; E03.9 Hypothyroidism, unspecified; E55.9 Vitamin D deficiency, unspecified; J45.909 Unspecified asthma, uncomplicated; F32.A Depression, unspecified; F41.9 Anxiety disorder, unspecified; Z01.810 Encounter for preprocedural cardiovascular examination; Z01.812 Encounter for preprocedural laboratory examination; Z20.822 Contact with and (suspected) exposure to COVID-19; Z79.82 Long term (current) use of aspirin; Z79.4 Long term (current) use of insulin; Z79.899 Other long term (current) drug therapy; Z68.32 Body mass index [BMI] 32.0-32.9, adult; Z85.42 Personal history of malignant neoplasm of other parts of uterus; Z95.5 Presence of coronary angioplasty implant and graft; Z80.0 Family history of malignant neoplasm of digestive organs
CPT/HCPCS: 36415 ×2; 43239; 45380; 45385; 45388; 82948; 85025; 93005; C9113; J2001; J2250; J2704; J3010; U0002; 45378